=== PATIENT | male | born 1960 | race Caucasian/White ===

== ENCOUNTER 2024-10-30 14:33 | Emergency (ER) | payer OTHER ==
[~2024-10-30] VITALS: Ht 170.2 cm; Wt 80.0 kg
[2024-10-30 14:36] VITALS: BP 142/76; PULSE 76; RESP 16; TEMP 98.3; O2SAT 98
== END 2024-10-30 23:09 | disposition left against medical advice (07) ==
LOC: ER 14:33
DX: R42 Dizziness and giddiness (principal); E11.9 Type 2 diabetes mellitus without complications; I10 Essential (primary) hypertension; Z86.73 Personal history of transient ischemic attack (TIA), and cerebral infarction without residual deficits; Z53.21 Procedure and treatment not carried out due to patient leaving prior to being seen by health care provider
CPT/HCPCS: 93005